=== PATIENT | male | born 1945 | race Caucasian/White ===

== ENCOUNTER 2022-05-05 14:56 | Outpatient (CLI) | payer MEDICARE, BC, SELFPAY ==
[2022-05-05 18:26] LABS: Chloride* 106 mmol/L (96-114); Potassium* 4.8 mmol/L (3.6-5.1); Sodium* 139 mmol/L (135-149)
[2022-05-05 18:28] LABS: Cholesterol* 188 mg/dL (90-199); Creatinine* 1.5 mg/dL (0.5-1.5); Estimated Glomerular Filt Rate 47 ml/min
[2022-05-05 18:29] LABS: Blood Urea Nitrogen* 24 mg/dL (7-30); Calcium* 9.6 mg/dL (8.4-10.6); Carbon Dioxide* 24 mmol/L (20-32); Glucose* 96 mg/dL (60-115); Triglycerides* 76 mg/dL (40-149)
[2022-05-05 18:30] LABS: HDL Cholesterol* 72 mg/dL (>=40); LDL Cholesterol Calculated 101 mg/dL (<100)
== END 2022-05-05 14:57 | disposition home or self-care (01) ==
PROVIDERS: PCP Family Medicine; Visit Provider Family Medicine
DX: E78.5 Hyperlipidemia, unspecified (principal); I10 Essential (primary) hypertension
CPT/HCPCS: 80048; 80061

== ENCOUNTER 2023-05-30 14:03 | Outpatient (CLI) | payer MEDICARE, BC, SELFPAY | END 2023-05-30 14:04 | disposition home or self-care (01) | PROVIDERS: PCP Family Medicine; Visit Provider Family Medicine | DX: I10 Essential (primary) hypertension (principal); E78.2 Mixed hyperlipidemia | CPT/HCPCS: 80048; 80061 ==

== ENCOUNTER 2023-11-15 14:59 | Emergency (ER) | payer MEDICARE, BC, SELFPAY ==
[2023-11-15 15:01] VITALS: BP 170/77; PULSE 112; RESP 18; TEMP 36.4; O2SAT 96; BMI 27.4
--- NOTE | 2023-11-15 15:37 | ED_ITS ---
HPI - Wound/Laceration General Chief Complaint: Laceration/Wound Stated Complaint: L thumb lac Time Seen by Provider: 11/15/23 15:02 Source: patient Mode of arrival: ambulatory Limitations: no limitations History of Present Illness HPI narrative: Patient is a 78-year-old male last tetanus shot in 2014 presenting to emergency department for laceration to his left thumb. It is on the dorsal aspect between the MCP and interphalangeal joint. He states he was cutting cardboard box when the knife slipped and stabbed the finger. He has full range of motion of some. No other injuries noted Related Data Home Medications ?Medication ?Instructions ?Recorded ?Confirmed Proventil HFA 108 mcg PO PRN 05/05/22 05/30/23 cholecalciferol (vitamin D3) 25 25 mcg PO QDAY 05/05/22 05/30/23 mcg (1,000 unit) capsule multivitamin 1 tab PO QDAY 05/05/22 05/30/23 zinc acetate 25 mg (zinc) capsule 25 mg PO QDAY 05/05/22 05/30/23 (Galzin) magnesium 500 mg tablet 15 mg PO DAILY 08/25/22 05/30/23 Previous Rx's ?Medication ?Instructions ?Recorded albuterol sulfate 90 mcg/actuation 2 puff inhalation Q6H PRN 05/30/23 aerosol inhaler (Proventil HFA) shortness of breath or wheezing #25.5 grams amlodipine 10 mg tablet 10 mg PO QDAY #90 tabs 05/30/23 atorvastatin 20 mg tablet 20 mg PO QHS #90 tabs 05/30/23 budesonide-formoterol HFA 80 2 puff inhalation BID #30.6 grams 05/30/23 mcg-4.5 mcg/actuation aerosol inhaler (Symbicort) lisinopril 10 mg tablet 10 mg PO QDAY #90 tabs 05/30/23 tamsulosin 0.4 mg capsule 0.4 mg PO QDAY #90 caps 05/30/23 tiotropium bromide 18 mcg capsule 1 cap inhalation QDAY #90 06/01/23 with inhalation device (Spiriva inhalations with HandiHaler) budesonide-formoterol HFA 80 2 puff inhalation BID #10.2 grams 06/08/23 mcg-4.5 mcg/actuation aerosol inhaler fluticasone 113 mcg-salmeterol 14 1 inh inhalation BID #1 ea 07/09/23 mcg/actuation breath activated powdr (AirDuo RespiClick) cephalexin 500 mg capsule 500 mg PO QID #20 caps 11/15/23 Allergies Allergy/AdvReac Type Severity Reaction Status Date / Time No Known Drug Allergies Allergy Verified 05/30/23 13:21 Review of Systems Narrative: Pertinent systems reviewed and were negative unless stated in HPI PFSH PFSH Medical History Dysphagia ?R13.10 - Dysphagia, unspecified (ICD-10) Surgical History S/P cataract extraction ?Z98.49 - Cataract extraction status, unspecified eye (ICD-10) Social History Smoking Status: Former smoker Do you use any of these nicotine containing products: None Second hand tobacco smoke exposure: No How often do you have a drink containing alcohol: never How often do you have six or more drinks on one occasion: Never AUDIT-C Alcohol total score: 0 Non-prescribed substance use: denies use Little interest or pleasure in doing things: not at all Feeling down, depressed, or hopeless: not at all Exam Narrative: Exam Narrative: Const: Well-nourished, Well-developed, in mild distress Eyes: PERRL, no conjunctival injection, and symmetrical lids HENT: Atraumatic external nose and ears. Moist mucous membranes. MSK:Extremities w/o deformity, Normal Active ROM Skin: Warm, Dry. 0.5 cm laceration dorsal aspect of left thumb between MCP and IP joint Neuro: Normal Muscle tone, No focal neurological deficits. Psych: Awake, Alert, & Oriented x3. Appropriate mood and affect. Const: Vital Signs, click to edit/add: Vital Signs - 24 hr 11/15/23 15:01 Temperature 97.6 F Pulse Rate [Right Pulse Oximeter] 112 H Respiratory Rate 18 Blood Pressure [Ri ght Upper Arm] 170/77 H Pulse Oximetry 96 Oxygen Delivery Me thod Room Air Course Vital Signs Vital signs: Initial Vital Signs Temperature 97.6 F 11/15/23 15:01 Temperature Source Temporal Artery Scan 11/15/23 15:01 Pulse Rate 112 H 11/15/23 15:01 Pulse Rhythm Regular 11/15/23 15:01 Pulse Strength 3+ Normal 11/15/23 15:01 Respiratory Rate 18 11/15/23 15:01 Blood Pressure 170/77 H 11/15/23 15:01 Blood Pressure Mean 108 H 11/15/23 15:01 Blood Pressure Position Sitting 11/15/23 15:01 Pulse Oximetry 96 11/15/23 15:01 Oxygen Delivery Method Room Air 11/15/23 15:01 Vital Signs Temperature 97.6 F 11/15/23 15:01 Pulse Rate 112 H 11/15/23 15:01 Respiratory Rate 18 11/15/23 15:01 Blood Pressure 170/77 H 11/15/23 15:01 Pulse Oximetry 96 11/15/23 15:01 Oxygen Delivery Method Room Air 11/15/23 15:01 Temperature 97.6 F 11/15/23 15:01 Pulse Rate 112 H 11/15/23 15:01 Respiratory Rate 18 11/15/23 15:01 Blood Pressure 170/77 H 11/15/23 15:01 Pulse Oximetry 96 11/15/23 15:01 Oxygen Delivery Method Room Air 11/15/23 15:01 MDM - Wound/Laceration MDM Narrative Medical decision making narrative: Patient is an 78-year-old male presenting for laceration to the dorsal aspect of the left thumb. Wound was thoroughly clearing. Says has a rather small wound I did speak to about method of closing. I do not want to move as this on my hand and hands of a higher chance of infection. I believe 1 sutures all that is needed. I explained to him the like and trying to a nerve walker normal the area but considering his only 1 suture the least painful method may actually be doing the suture without any lidocaine. He did not want to wait for let. He agreed to this and 1 suture was placed without any issue. Considering it was somewhat like a puncture wound I will put him on antibiotics. Discharge Plan Discharge Clinical Impression: Laceration Patient Disposition: Home, Self-Care Condition: Stable Instructions: Finger Laceration (ED) Additional Instructions: Follow-up with your primary care provider or urgent care in the next 7 days to have the 1 sutures removed. For next 6 months, once sutures are removed, whenever you go outside put a dab of sunscreen over the laceration site to improve scar appearance. Topical antibiotics are not necessary at this time. Patient can shower but do not submerge the laceration until sutures are removed Prescriptions: New cephalexin 500 mg capsule 500 mg PO QID Qty: 20 0RF No Action multivitamin Tablet 1 tab PO QDAY cholecalciferol (vitamin D3) 25 mcg (1,000 unit) capsule 25 mcg PO QDAY Galzin 25 mg (zinc) capsule 25 mg PO QDAY Proventil HFA 108 mcg 108 mcg PO PRN Rx Instructions: 2 PUFF INH Q4H PRN amlodipine 10 mg tablet 10 mg PO QDAY Qty: 90 3RF atorvastatin 20 mg tablet 20 mg PO QHS Qty: 90 3RF budesonide-formoterol [Symbicort] 80-4.5 mcg/actuation HFA aerosol inhaler 2 puff inhalation BID Qty: 30.6 3RF lisinopril 10 mg tablet 10 mg PO QDAY Qty: 90 3RF tamsulosin 0.4 mg capsule 0.4 mg PO QDAY Qty: 90 3RF albuterol sulfate [Proventil HFA] 90 mcg/actuation HFA aerosol inhaler 2 puff inhalation Q6H PRN (Reason: shortness of breath or wheezing) Qty: 25.5 3RF magnesium 500 mg tablet 15 mg PO DAILY Spiriva with HandiHaler 18 mcg capsule, w/inhalation device 1 cap inhalation QDAY Qty: 90 3RF Rx Instructions: puncture 1 cap using device; one dose = 2 inhalations budesonide-formoterol 80-4.5 mcg/actuation HFA aerosol inhaler 2 puff inhalation BID Qty: 10.2 11RF fluticasone propion-salmeterol [AirDuo RespiClick] 113-14 mcg/actuation aerosol powdr breath activated 1 inh inhalation BID Qty: 1 11RF Follow Up/Referrals: Travis Bullock MD [Primary Care Provider] - Stand Alone Forms: [facility] Info Instructions Procedures Laceration Thumb: Site: hand (Posterior aspect of thumb) Side (If applicable): left Size (cm): 0.5 Description: linear and clean Depth: simple, single layer Pre-repair: wound explored, irrigated extensively and deep structures intact Skin layer closed with: nylon Size (cm): 4-0 Number of sutures: 1 Technique: simple, interrupted
== END 2023-11-15 15:51 | disposition home or self-care (01) ==
PROVIDERS: Emergency Provider Student in an Organized Health Care Education/Training Program; PCP Family Medicine
DX: S61.012A Laceration without foreign body of left thumb without damage to nail, initial encounter (principal); W26.0XXA Contact with knife, initial encounter
CPT/HCPCS: 12001; 99282; 99283

== ENCOUNTER 2024-03-23 11:24 | Emergency (ER) | payer MEDICARE, BC, SELFPAY ==
[2024-03-23] VITALS (28 sets, daily range): BP systolic 149–188; BP diastolic 75–103; PULSE 102–113; RESP 20–28; TEMP 36.9; O2SAT 91–96; BMI 27.4
--- NOTE | 2024-03-23 11:37 | ED.GENADULT ---
HPI - General Adult General Time Seen by Provider: 11:37 Date Seen: 03/23/24 Chief complaint: Difficulty Swallowing Stated complaint: Food lodged in throat from last night Time Seen by Provider: 03/23/24 11:37 Source: patient and RN notes reviewed Mode of arrival: ambulatory Limitations: no limitations History of Present Illness HPI narrative: Colton is a very pleasant 79-year-old gentleman with history of COPD, hypertension, hyperlipidemia who no longer smokes who comes to the emergency room with difficulty swallowing. Colton notes that last night he had salad and piece do at around 1800 hours is a suddenly felt like something is caught in his throat. He points to the area of the jugular notch. Since that time he has been unable to even swallow his own saliva and has a spit bucket with him. He has not had fever chills or difficulty breathing. He notes that this has happened in the past but usually resolves. He did come in over a year ago but the symptoms had resolved once he got here. He notes he usually feels like the need to burp and once he is able to do that everything is better. After his previous visit he did not follow-up with endoscopies. He has been on omeprazole since that time. It appears in the notes that this was May of 2022. Patient has not had any usual chest pain, had fever chills or been ill. Related Data Home Medications ?Medication ?Instructions ?Recorded ?Confirmed Proventil HFA 108 mcg PO PRN 05/05/22 05/30/23 cholecalciferol (vitamin D3) 25 25 mcg PO QDAY 05/05/22 05/30/23 mcg (1,000 unit) capsule multivitamin 1 tab PO QDAY 05/05/22 05/30/23 zinc acetate 25 mg (zinc) capsule 25 mg PO QDAY 05/05/22 05/30/23 (Galzin) magnesium 500 mg tablet 15 mg PO DAILY 08/25/22 05/30/23 Previous Rx's ?Medication ?Instructions ?Recorded albuterol sulfate 90 mcg/actuation 2 puff inhalation Q6H PRN 05/30/23 aerosol inhaler (Proventil HFA) shortness of breath or wheezing #25.5 grams amlodipine 10 mg tablet 10 mg PO QDAY #90 tabs 05/30/23 atorvastatin 20 mg tablet 20 mg PO QHS #90 tabs 05/30/23 budesonide-formoterol HFA 80 2 puff inhalation BID #30.6 grams 05/30/23 mcg-4.5 mcg/actuation aerosol inhaler (Symbicort) lisinopril 10 mg tablet 10 mg PO QDAY #90 tabs 05/30/23 tamsulosin 0.4 mg capsule 0.4 mg PO QDAY #90 caps 05/30/23 tiotropium bromide 18 mcg capsule 1 cap inhalation QDAY #90 06/01/23 with inhalation device (Spiriva inhalations with HandiHaler) budesonide-formoterol HFA 80 2 puff inhalation BID #10.2 grams 06/08/23 mcg-4.5 mcg/actuation aerosol inhaler fluticasone 113 mcg-salmeterol 14 1 inh inhalation BID #1 ea 07/09/23 mcg/actuation breath activated powdr (AirDuo RespiClick) cephalexin 500 mg capsule 500 mg PO QID #20 caps 11/15/23 Allergies Allergy/AdvReac Type Severity Reaction Status Date / Time No Known Drug Allergies Allergy Verified 05/30/23 13:21 Review of Systems Status of ROS: Reports: 10 or more systems reviewed and unremarkable except as noted in History and below Const: Denies: fever or chills ENMT: Reports: throat pain and difficulty swallowing; Denies: swelling of lips/tongue or nasal congestion Cardio: Denies: chest pain, palpitations or shortness of breath with exertion Resp: Denies: shortness of breath or cough GI: Reports: difficulty swallowing; Denies: abdominal pain, nausea or vomiting PFSH PFSH Medical History Dysphagia ?R13.10 - Dysphagia, unspecified (ICD-10) Surgical History S/P cataract extraction ?Z98.49 - Cataract extraction status, unspecified eye (ICD-10) Social History Smoking Status: Former smoker What tobacco products do you use: cigarettes Smoking packs per day: 1.5 Smoking cigarettes per day: 30.0 Years smoked: 50 Smoking pack-years: 75.00 Smoking quit date/years: >15 years ago Do you use any of these nicotine containing products: None Second hand tobacco smoke exposure: No How often do you have a drink containing alcohol: never How often do you have six or more drinks on one occasion: Never AUDIT-C Alcohol total score: 0 Non-prescribed substance use: denies use service: No Exam Narrative: Exam Narrative: Patient is alert and oriented. No acute distress. Occasional episodes of spitting clear saliva. EOM is full. Oral cavity with moist mucous membranes. Heart with regular rate and rhythm and lungs are clear bilaterally except for the bases which show slight wheezing. Abdomen is protruded room but soft. Moving all extremities. Const: Vital Signs, click to edit/add: Vital Signs - 24 hr 03/23/24 11:29 03/23/24 12:15 03/23/24 12:17 Temperature 98.4 F Pulse Rate 105 H 105 H Pulse Rate [Right Radial] 103 H Respiratory Rate 28 H 22 Blood Pressure 177/86 H Blood Pressure [Ri ght Upper Arm] 166/81 H Pulse Oximetry 96 95 96 Oxygen Delivery Me thod Room Air 03/23/24 12:30 03/23/24 12:45 03/23/24 13:00 Temperature Pulse Rate 106 H 102 H 108 H Pulse Rate [Right Radial] Respiratory Rate Blood Pressure Blood Pressure [Ri ght Upper Arm] Pulse Oximetry 95 94 95 Oxygen Delivery Me thod 03/23/24 13:02 03/23/24 13:09 03/23/24 13:13 Temperature Pulse Rate 109 H 108 H 108 H Pulse Rate [Right Radial] Respiratory Rate 20 Blood Pressure 177/88 H 188/83 H 175/90 H Blood Pressure [Ri ght Upper Arm] Pulse Oximetry 96 94 94 Oxygen Delivery Me thod Room Air 03/23/24 13:15 03/23/24 13:17 03/23/24 13:22 Temperature Pulse Rate 103 H 103 H 103 H Pulse Rate [Right Radial] Respiratory Rate Blood Pressure 172/103 H 156/82 H Blood Pressure [Ri ght Upper Arm] Pulse Oximetry 94 92 91 Oxygen Delivery Me thod Room Air 03/23/24 13:27 03/23/24 13:30 03/23/24 13:33 Temperature Pulse Rate 103 H 103 H 103 H Pulse Rate [Right Radial] Respiratory Rate 20 Blood Pressure 149/75 H 152/84 H Blood Pressure [Ri ght Upper Arm] Pulse Oximetry 91 94 92 Oxygen Delivery Me thod 03/23/24 13:37 03/23/24 13:42 Temperature Pulse Rate 110 H 113 H Pulse Rate [Right Radial] Respiratory Rate 22 Blood Pressure 175/86 H 171/84 H Blood Pressure [Ri ght Upper Arm] Pulse Oximetry 95 94 Oxygen Delivery Me thod Room Air Documenting provider has reviewed patient's vital signs: yes Course Course ED Course: Patient is presenting with esophageal obstruction. Differential includes mass, stricture, Zenker's diverticulum. Will place IV give 500 mL normal saline and try nitroglycerin at this time. Given the fact that he has had this obstruction for greater than 15 hours will avoid the ?pop rocks?. I have spoken to our surgeon on-call and we are attempting to find endoscopies nurse to assist us if the nitro fails. Will also collect CBC and comprehensive panel. Reevaluation(s) Reevaluation #1: Colton seemed to be improving after nitroglycerin. Therefore he did take a sip of water with success. However after a few minutes when we elected to have him drink some more water this did not stay down. He has now had numerous emesis occurrences. Very small amounts each time. There is some carrot and let us small amounts coming up with this. Will give him Zofran at this time. We were unsuccessful in finding and os could be nurse here to assist her surgeon and therefore patient will need to be transferred. Looking for [facility] for assistance in this endeavor. Vital Signs Vital signs: Initial Vital Signs Temperature 98.4 F 03/23/24 11:29 Temperature Source Temporal Artery Scan 03/23/24 11:29 Pulse Rate 103 H 03/23/24 11:29 Pulse Rhythm Regular 03/23/24 11:29 Respiratory Rate 28 H 03/23/24 11:29 Blood Pressure 166/81 H 03/23/24 11:29 Blood Pressure Mean 109 H 03/23/24 11:29 Pulse Oximetry 96 03/23/24 11:29 Oxygen Delivery Method Room Air 03/23/24 11:29 Vital Signs Temperature 98.4 F 03/23/24 11:29 Pulse Rate 103 H 03/23/24 11:29 Respiratory Rate 28 H 03/23/24 11:29 Blood Pressure 166/81 H 03/23/24 11:29 Pulse Oximetry 96 12/15/24 11:29 Oxygen Delivery Method Room Air 03/23/24 11:29 Temperature 98.4 F 03/23/24 11:29 Pulse Rate 109 H 03/23/24 15:36 Respiratory Rate 24 03/23/24 15:36 Blood Pressure 170/92 H 03/23/24 15:36 Pulse Oximetry 95 03/23/24 15:36 Oxygen Delivery Method Room Air 03/23/24 15:36 Medications Administered Medications: Discontinued Medications Generic Name Dose Route Start Last Admin Trade Name Fredimitri PRN Reason Stop Dose Admin Sodium Chloride 500 mls @ 500 mls/hr 03/23/24 11:45 03/23/24 13:09 0.9 % Sodium Chloride 500 Ml IV 03/23/24 12:44 Infused .Q1H ONE Infusion Nitroglycerin 0.4 mg 03/23/24 12:56 03/23/24 13:08 Nitroglycerin 0.4 Mg Tab.Subl SUBLINGUAL 03/23/24 12:57 0.4 mg ONCE ONE Administration Ondansetron HCl 4 mg 03/23/24 14:19 03/23/24 14:26 Ondansetron 2 Mg/Ml Inj IVP 03/23/24 14:20 4 mg ONCE ONE Administration Medical Decision Making MDM Narrative Medical decision making narrative: 1. Esophageal obstruction-no relief with nitroglycerin. This is been going on greater than 18 hours. 2. History of COPD-clear lung sounds. No recent fever chills or cough. 3. Disposition-patient would like to drive by private vehicle. We were contacted by Dr. Louis physician with [employer] system and directed to send Colton to the ED at [facility] directly. He is requesting that we do a chest CT. Given history of tobacco use and recurrent issues will CT chest abdomen pelvis. We will be sending a copy of the CT with him to the [facility] ED. Addendum: Patient contacted by phone erika romero informed of CT results which included esophogeal obstruction as well as abnormality in chest and pancreas. Patient was aware of these findings and has a follow up endoscopy on Apr 07 here in [place]. He also was aware of the need for CT of the chest in 6 months and a study to look at the pancreas. Mr. Villarreal stated that his daughter was making the appointments for him. Medical Records Medical records reviewed: Yes I reviewed the patient's medical records Lab Data Lab results reviewed: Yes I reviewed the patient's lab results Labs: Lab Results 03/23/24 Range/Units 12:05 WBC 10.46 (4.50-11.00) K/uL RBC 3.78 L (4.30-5.90) m/uL Hgb 11.6 L (13.5-17.5) gm/dL Hct 36.0 L (37.0-53.0) % MCV 95 (80-100) fL MCH 31 (26-34) pg MCHC 32 (32-36) gm/dL RDW Coeff of Joanna 13.3 (11.5-15.5) % Plt Count 327 (140-440) K/uL Neut % (Auto) 79.6 H (42.0-72.0) % Lymph % (Auto) 12.5 L (20-44) % [place] % (Auto) 6.9 (0.0-11.0) % Eos % (Auto) 0.5 (0.0-7.0) % Baso % (Auto) 0.3 (0.0-3.0) % Neut # (Auto) 8.30 H (1.7-7.0) K/uL Lymph # (Auto) 1.30 (0.90-2.90) K/uL [place] # (Auto) 0.70 (0.00-0.90) K/UL Eos # (Auto) 0.05 (0.00-0.50) K/uL Baso # (Auto) 0.03 (0.00-0.30) K/uL Abs Immat Gran (auto) 0.02 (0.00-0.30) K/uL Imm/Tot Granulo (auto) 0.2 % Sodium 142 (135-149) mmol/L Potassium 4.4 (3.6-5.1) mmol/L Chloride 110 (96-114) mmol/L Carbon Dioxide 17 L (20-32) mmol/L Anion Gap 15 (7-15) mEq/L BUN 24 (7-30) mg/dL Creatinine 1.5 (0.5-1.5) mg/dL Estimated Creat Clear 37.37 Estimated GFR 46 ml/min Glucose 130 H (60-115) mg/dL Calcium 9.2 (8.4-10.6) mg/dL Imaging Data Chest x-ray: Attestation: I have reviewed the pertinent imaging results. Discharge Plan Discharge Clinical Impression: Acute esophageal obstruction Patient Disposition: [facility] Discharge Location: [facility] Condition: Stable Additional Instructions: Proceed to the [facility] Emergency Department.
[2024-03-23 12:14] LABS: Basophils Absolute Auto 0.03 K/uL (0.00-0.30); Basophils Percent Auto 0.3 % (0.0-3.0); Eosinophils Absolute Auto 0.05 K/uL (0.00-0.50); Eosinophils Percent Auto 0.5 % (0.0-7.0); Hemoglobin* 11.6 gm/dL (13.5-17.5); Immature Granulocytes Abs Auto 0.02 K/uL (0.00-0.30); Immature Granulocytes Pct Auto 0.2 %; Lymphocytes Percent Auto 12.5 % (20-44); Mean Corpuscular HGB Conc 32 gm/dL (32-36); Mean Corpuscular Hemoglobin 31 pg (26-34); Mean Corpuscular Volume 95 fL (80-100); Monocytes Percent Auto 6.9 % (0.0-11.0); Neutrophils Percent Auto 79.6 % (42.0-72.0); Platelet Count* 327 K/uL (140-440); RDW Coefficient of Variation % 13.3 % (11.5-15.5); Red Blood Count 3.78 m/uL (4.30-5.90); White Blood Count* 10.46 K/uL (4.50-11.00)
[2024-03-23] MEDS: 0.9 % SODIUM CHLORIDE 500 ML 500 ML IV (12:18)
[2024-03-23 12:22] LABS: Slide Review Reflex No
[2024-03-23 12:28] LABS: Chloride* 110 mmol/L (96-114); Potassium* 4.4 mmol/L (3.6-5.1); Sodium* 142 mmol/L (135-149)
[2024-03-23 12:31] LABS: Anion Gap 15 mEq/L (7-15); Calcium* 9.2 mg/dL (8.4-10.6); Carbon Dioxide* 17 mmol/L (20-32); Creatinine* 1.5 mg/dL (0.5-1.5); Est. Creatinine Clearance* 37.37; Estimated Glomerular Filt Rate 46 ml/min; Glucose* 130 mg/dL (60-115)
[2024-03-23 12:37] LABS: Blood Urea Nitrogen* 24 mg/dL (7-30)
[2024-03-23] MEDS: NITROGLYCERIN 0.4 MG TAB.SUBL SUBLINGUAL (13:08)
--- NOTE | 2024-03-23 14:22 | CRLHL7_ITS ---
For Patients: As a result of the Century Cures Act, medical imaging exams and procedure reports are released immediately into your electronic medical record. You may view this report before your referring provider. If you have questions, please contact your health care provider. INDICATION: Food lodged in throat. TECHNIQUE: Chest 1 view(s) COMPARISON: None FINDINGS: Cardiomediastinal silhouette and pulmonary vasculature are normal. Streaky bibasilar opacities, likely atelectasis. No focal consolidation. No layering pleural effusion. No pneumothorax. Small hiatal hernia. Trachea appears patent. Esophagus is not adequately evaluated on radiograph. IMPRESSION: Streaky bibasilar opacities, likely atelectasis. Small hiatal hernia. Trachea appears patent. Esophagus is not adequately evaluated on radiograph. Dictated by Virgen Pizano MD @ 03/23/2024 3:34:22 PM (Electronically Signed)
[2024-03-23] MEDS: ONDANSETRON 2 MG/ML inj 4 MG IVP (14:26)
--- NOTE | 2024-03-23 14:46 | CRLHL7_ITS ---
For Patients: As a result of the Century Cures Act, medical imaging exams and procedure reports are released immediately into your electronic medical record. You may view this report before your referring provider. If you have questions, please contact your health care provider. Indication: Esophageal obstruction, tobacco use. Technique: CT of the chest, abdomen and pelvis was performed following the administration of 95 mL Isovue 370. Comparison: Same day chest radiograph. Findings: CHEST Lungs and pleura: Focal ground-glass opacity within the right upper lobe posteriorly measuring 10 x 7 mm. Linear scarring versus subsegmental atelectasis in the lingula. No pleural effusion or pneumothorax. Heart and great vessels: The heart is normal in size. No pericardial effusion. Aorta and pulmonary artery are normal in caliber. Moderate atherosclerotic aortic and coronary artery calcifications. Thyroid and mediastinum: Thyroid is normal. Distended fluid-filled esophagus and small hiatal hernia. Mild esophageal wall thickening at the gastroesophageal junction without discrete mass identified. Small paraesophageal lymph nodes measure less than 1 cm in short axis. No mediastinal or hilar lymphadenopathy by size criteria. Chest wall: Multilevel degenerative disc disease. ABDOMEN AND PELVIS Liver: Mild hepatic steatosis. Fluid attenuation probable cyst within the right hepatic lobe. Additional too small to characterize hypodensity within the inferior right hepatic lobe. Minimal dependent hyperdensities within the gallbladder body likely sludge versus small stones. No pericholecystic inflammatory change. No biliary ductal dilation. Pancreas: Mild soft tissue prominence in the region of the ampulla/pancreatic head measuring 1.3 x 1.1 cm in axial dimensions (series 2, image 158). No pancreatic ductal dilation or pancreatic gland atrophy. Spleen: Unremarkable. Adrenals: Unremarkable. Kidneys: Left lower pole renal cyst. No nephrolithiasis or hydronephrosis. Aorta/IVC: Extensive atherosclerotic aortic calcifications without aneurysmal dilation. Lymph nodes: No lymphadenopathy. Bowel: Nonobstructed bowel. Extensive descending and sigmoid colon diverticulosis without findings of acute diverticulitis. Normal appendix. No intraperitoneal free air or fluid. Pelvis: Prostatomegaly with dystrophic prostate calcifications. Bones/body wall: Multilevel degenerative disc disease. Stepwise grade 1 anterolisthesis from L4-S1. Impression: 1. Distended fluid-filled esophagus with small hiatal hernia and mild esophageal wall thickening at the gastroesophageal junction. No discrete mass is identified. There are small paraesophageal lymph nodes, which are nonspecific. Recommend GI consultation with consideration of direct visualization for more complete evaluation. 2. Mild soft tissue prominence in the region of the pancreatic head without pancreatic/biliary ductal dilation or pancreatic gland atrophy. Recommend further evaluation with nonemergent pancreas protocol MRI. 3. Right upper lobe ground-glass nodule measuring [address] chest at 6-12 months. 4. Hepatic steatosis. 5. Colonic diverticulosis. Please note that all CT scans at this facility use dose modulation, iterative reconstruction, and/or weight-based dosing when appropriate to reduce radiation dose to as low as reasonably achievable. Dictated by Haley Stringer MD @ 03/23/2024 4:21:45 PM (Electronically Signed)
== END 2024-03-23 15:43 | disposition short-term general hospital (02) ==
PROVIDERS: Emergency Provider Family Medicine; PCP Family Medicine
DX: K22.2 Esophageal obstruction (principal)
CPT/HCPCS: 36415; 71045; 71260; 74177; 80048; 85025; 96374; 99284; 99285; A9270; J2405; J7030; Q9967

== ENCOUNTER 2024-04-07 10:19 | Outpatient (CLI) | payer MEDICARE, BC, SELFPAY ==
--- NOTE | 2024-04-07 11:43 | W.ANESCHARGE ---
Anesthesia Charges Start Date/Time Anesthesia Start Date: 04/07/24 Anesthesia Start Time: 11:16 Stop Date/Time Anesthesia Stop Date: 04/07/24 Anesthesia Stop Time: 11:36
== END 2024-04-07 10:20 | disposition home or self-care (01) ==
PROVIDERS: PCP Family Medicine; Visit Provider Surgery
DX: R13.10 Dysphagia, unspecified (principal); K44.9 Diaphragmatic hernia without obstruction or gangrene; K22.89 Other specified disease of esophagus
CPT/HCPCS: 00731; 43239; 88305; J2405; J2704

== ENCOUNTER 2024-06-16 11:06 | Outpatient (CLI) | payer MEDICARE, BC, SELFPAY | END 2024-06-16 11:07 | disposition home or self-care (01) | LOC: LKVREF 11:07 | PROVIDERS: PCP Family Medicine; Visit Provider Family Medicine | DX: E78.00 Pure hypercholesterolemia, unspecified (principal) | CPT/HCPCS: 80061 ==

== ENCOUNTER 2024-06-25 12:34 | Outpatient (CLI) | payer MEDICARE, BC, SELFPAY ==
--- NOTE | 2024-06-25 13:00 | CRLHL7_ITS ---
For Patients: As a result of the Century Cures Act, medical imaging exams and procedure reports are released immediately into your electronic medical record. You may view this report before your referring provider. If you have questions, please contact your health care provider. INDICATION: Soft tissue prominence in the head of the pancreas. COMPARISON: CT scan of the chest, abdomen, and pelvis dated 23 March 2024. TECHNIQUE: Abdominal MRI with T1 in- and out of phase, T2, diffusion weighted, and progressively delayed post-contrast images. Intravenous gadolinium administered. FINDINGS: No fatty infiltration of the liver. 1.5 cm cyst in the upper portion of segment 7 of the liver. A few other tiny probable cysts in the liver. No other focal abnormalities identified in the visualized portions of the liver, spleen, and adrenal glands. 3.1 cm cyst extending off the lower pole of the left kidney. The kidneys are otherwise unremarkable. No hydronephrosis. No adenopathy. Normal appearance of the pancreas. No pancreatic mass identified. No bile duct dilation. Normal size of the main pancreatic duct. A few small gallstones in an otherwise normal-appearing gallbladder. Impression : 1. Normal appearance of the pancreas. No pancreatic mass identified. Dictated by Emmett Diaz MD @ 06/26/2024 10:24:40 AM (Electronically Signed)
== END 2024-06-25 12:35 | disposition home or self-care (01) ==
LOC: MRI 12:35
PROVIDERS: PCP Family Medicine; Visit Provider Family Medicine
DX: K86.89 Other specified diseases of pancreas (principal); K76.89 Other specified diseases of liver; N28.1 Cyst of kidney, acquired; K80.20 Calculus of gallbladder without cholecystitis without obstruction
CPT/HCPCS: 74183; A9575